=== PATIENT | female | born 1995 | race African-American/Black ===

== ENCOUNTER → 2020-03-19 | Outpatient (REF) | payer OTHER ==
[2020-03-20 19:11] LABS: CHLAMYDIA DNA AMPLIFICATION NEGATIVE (NEGATIVE); GC DNA AMPLIFICATION NEGATIVE (NEGATIVE)
== END ==
LOC: M WUC 18:59
PROVIDERS: ATTEND Physician Assistant
DX: N76.0 Acute vaginitis (principal)